=== PATIENT | female | born 1995 ===

== ENCOUNTER 2017-09-01 08:50 | Emergency (ER) | payer MEDICAID, OTHER ==
[2017-09-01 08:52] VITALS: BMI 30.2
[2017-09-01 09:16] VITALS: BP 106/68; PULSE 76; RESP 18; TEMP 98.9; O2SAT 97
--- NOTE | 2017-09-01 09:29 | ED PDOC ---
Arrival/HPI - General Chief Complaint: ENT Problem Time Seen by Provider: 09/01/17 09:20 Historian: Patient - History of Present Illness Narrative History of Present Illness (Text): 09/01/17 09:26 This 22 yo female who denies pmh, presents to this ED c/o sore throat, earache x 2 days. Patient stated patient has been taking home remedies without significant improvement. Denies sob, cp, abdominal pain, , urinary symptoms, skin rash, dysphagia, or abnormal gait. Time/Duration: Other (see hpi) Context: Home Past Medical History - Provider Review Nursing Documentation Reviewed: Yes - Past History Past History: No Previous - Infectious Disease Hx of Infectious Diseases: None - Tetanus Immunization Tetanus Immunization: Unknown - Past Medical History Past Medical History: Non-Contributing - Pulmonary Hx Asthma: Yes - Psychiatric Hx Substance Use: No - Surgical History Hx Appendectomy: Yes - Suicidal Assessment Feels Threatened In Home Enviroment: No Family/Social History - Physician Review Nursing Documentation Reviewed: Yes Family/Social History: Other (noncontributory) Smoking Status: Never Smoked Hx Alcohol Use: Yes Hx Substance Use: No Hx Substance Use Treatment: No Allergies/Home Meds Allergies/Adverse Reactions: Allergies No Known Allergies Allergy (Verified 09/01/17 09:16) Review of Systems - Review of Systems Constitutional: Normal. absent: Fatigue, Weight Change, Fevers, Night Sweats Eyes: Normal. absent: Photophobia, Eye Pain ENT: Sore Throat Respiratory: Normal. absent: SOB, Cough Cardiovascular: Normal. absent: Chest Pain Gastrointestinal: Normal. absent: Abdominal Pain, Nausea, Vomiting Genitourinary Female: Normal. absent: Dysuria, Frequency, Hematuria, Vaginal Bleeding, Vaginal Discharge Musculoskeletal: Normal. absent: Neck Pain Skin: Normal. absent: Rash Neurological: Normal. absent: Headache, Dizziness, Focal Weakness, Gait Changes , Speech Changes, Facial Droop Endocrine: Normal Hemo/Lymphatic: Normal Psychiatric: Normal Physical Exam Vital Signs Temp Pulse Resp BP Pulse Ox 09/01/17 09:14 98.9 F 76 18 106/68 97 Temperature: Afebrile Blood Pressure: Normal Pulse: Regular Respiratory Rate: Normal Appearance: Positive for: Well-Appearing, Non-Toxic, Comfortable Pain Distress: None Mental Status: Positive for: Alert and Oriented X 3 - Systems Exam Head: Present: Atraumatic, Normocephalic Pupils: Present: PERRL Extroacular Muscles: Present: EOMI Conjunctiva: Present: Normal Ears: Present: Normal, NORMAL TM, Normal Canal. No: Erythema, TM Bulging, Fluid Mouth: Present: Moist Mucous Membranes Pharnyx: Present: ERYTHEMA, TONSILS ENLARGED. No: Peritonsilar Swelling, Uvular Deviation, Muffled/Hoarse Voice, [place]ider Neck: Present: Normal Range of Motion, Lymphadenopathy, Trachea Midline. No: Meningeal Signs, MIDLINE TENDERNESS, Paraspinal Tenderness Respiratory/Chest: Present: Clear to Auscultation, Good Air Exchange. No: Respiratory Distress, Accessory Muscle Use, Wheezes, Retracting, Rhonchi Cardiovascular: Present: Regular Rate and Rhythm, Normal S1, S2. No: Murmurs Upper Extremity: Present: Normal Inspection, Normal ROM Lower Extremity: Present: Normal Inspection, Normal ROM Neurological: Present: GCS=15, CN II-XII Intact, Speech Normal Skin: Present: Warm, Dry, Normal Color. No: Rashes Psychiatric: Present: Alert, Oriented x 3, Normal Insight, Normal Concentration Medical Decision Making ED Course and Treatment: 09/01/17 09:30 Re-evaluation. Patient feels better. Discussed results and plan with patient who expresses understanding. All questions answered and there is agreement with the plan to discharge home with instructions. Patient stable for discharge. Return if symptoms persist or worsen. Patient requested to have Prednisone for her enlarge tonsils, and sore throat. I reviewed risk including AVN, glaucoma, osteroporosis, DM. Patient was recommended to stop Prednisone at any time, and to change toothbrush after 4 days with ABX. Re-evaluation Time: 09:30 Reassessment Condition: Re-examined, Improved - Medication Orders Current Medication Orders: Amoxicillin (Amoxil 500 Mg Cap) 500 mg PO STAT STA PRN Reason: Protocol Stop: 09/01/17 09:21 Prednisone (Prednisone Tab) 60 mg PO STAT ONE Stop: 09/01/17 09:26 Disposition/Present on Arrival - Present on Arrival Any Indicators Present on Arrival: No History of DVT/PE: No History of Uncontrolled Diabetes: No Urinary Catheter: No History of Decub. Ulcer: No History Surgical Site Infection Following: None - Disposition Have Diagnosis and Disposition been Completed?: Yes Diagnosis: Pharyngitis Disposition: HOME/ ROUTINE Disposition Time: 09:33 Patient Plan: Discharge Patient Problems: Current Active Problems Problem Status Onset Pharyngitis Acute Condition: GOOD Discharge Instructions (ExitCare): Pharyngitis (ED) Additional Instructions: Call private doctor for follow up visit in 1-2 days. Take medication as instructed. Change toothbrush after 4 days with antibiotic. You can stop Prednisone at any time. Return to emergency if symptoms worsen. Prescriptions: Amoxicillin [Amoxil 500 mg Cap] 500 mg PO TID #30 cap Prednisone [Deltasone] 40 mg PO DAILY #8 tablet Referrals: Olamide Meek, [Primary Care Provider] - Follow up with primary [facility] [Outside] - Follow up with primary [facility] [Outside] - Follow up with primary
== END 2017-09-01 09:42 | disposition home or self-care (01) ==
LOC: ED 08:50
DX: J02.9 Acute pharyngitis, unspecified (principal)

== ENCOUNTER 2017-10-18 12:21 | Emergency (ER) | payer MEDICAID ==
[2017-10-18 12:49] VITALS: BMI 28.3
[2017-10-18 12:53] VITALS: TEMP 98.4
--- NOTE | 2017-10-18 12:56 | ED PDOC ---
Arrival/HPI - General Chief Complaint: Female Genitourinary Time Seen by Provider: 10/18/17 12:53 Historian: Patient - History of Present Illness Narrative History of Present Illness (Text): 10/18/17 12:54 22 y/o female, no significant pmh, nkda, c/o burning urinary sensation with frequency/urgency started last night. Pt. has no pelvic or flank pain, no abdominal pain, eating and drinking well, no night sweat, no dizziness, no rash , no hematuria, no other medical or psychological complaints. Past Medical History - Provider Review Nursing Documentation Reviewed: Yes - Past History Past History: No Previous - Infectious Disease Hx of Infectious Diseases: None - Tetanus Immunization Tetanus Immunization: Unknown - Past Medical History Past Medical History: Non-Contributing - Pulmonary Hx Asthma: Yes - Genitourinary/Gynecological Hx Urinary Tract Infection: Yes (recurrent) - Psychiatric Hx Depression: No Hx Emotional Abuse: No Hx Physical Abuse: No Hx Substance Use: No - Surgical History Hx Appendectomy: Yes - Anesthesia Hx Anesthesia: Yes Hx Anesthesia Reactions: No Hx Malignant Hyperthermia: No - Suicidal Assessment Feels Threatened In Home Enviroment: No Family/Social History - Physician Review Nursing Documentation Reviewed: Yes Family/Social History: Unknown Family HX Smoking Status: Never Smoked Hx Alcohol Use: Yes Frequency of alcohol use: Socially Hx Substance Use: No Hx Substance Use Treatment: No Allergies/Home Meds Allergies/Adverse Reactions: Allergies No Known Allergies Allergy (Verified 09/01/17 09:16) Review of Systems - Review of Systems Constitutional: absent: Fatigue, Fevers Eyes: absent: Vision Changes ENT: absent: Hearing Changes Respiratory: absent: SOB, Cough Cardiovascular: absent: Chest Pain Gastrointestinal: absent: Abdominal Pain, Nausea, Vomiting Genitourinary Female: Dysuria, Frequency. absent: Hematuria, Urine Output Changes, Vaginal Bleeding, Vaginal Discharge Skin: absent: Rash, Pruritis Neurological: absent: Headache Psychiatric: absent: Anxiety, Depression Physical Exam Vital Signs Reviewed: Yes Vital Signs Temp Pulse Resp BP Pulse Ox 10/18/17 12:53 98.4 F 73 18 109/73 99 Temperature: Afebrile Blood Pressure: Normal Pulse: Regular Respiratory Rate: Normal Appearance: Positive for: Well-Appearing, Non-Toxic, Comfortable Pain Distress: Mild Mental Status: Positive for: Alert and Oriented X 3 - Systems Exam Head: Present: Atraumatic, Normocephalic Pupils: Present: PERRL Extroacular Muscles: Present: EOMI Conjunctiva: Present: Normal Mouth: Present: Moist Mucous Membranes Neck: Present: Normal Range of Motion Respiratory/Chest: Present: Clear to Auscultation, Good Air Exchange. No: Respiratory Distress, Accessory Muscle Use Cardiovascular: Present: Regular Rate and Rhythm, Normal S1, S2. No: Murmurs Abdomen: Present: Normal Bowel Sounds. No: Tenderness, Distention, Peritoneal Signs Back: Present: Normal Inspection. No: CVA Tenderness Upper Extremity: Present: Normal Inspection. No: Cyanosis, Edema Lower Extremity: Present: Normal Inspection. No: Edema Neurological: Present: GCS=15, Speech Normal, Motor Func Grossly Intact, Gait Normal, Memory Normal Skin: Present: Warm, Dry, Normal Color. No: Rashes Psychiatric: Present: Alert, Oriented x 3, Normal Insight, Normal Concentration Medical Decision Making ED Course and Treatment: 10/18/17 12:55 -urine hcg -UA -observe and reassess 10/18/17 14:11 -urine hcg is negative -UA show +UTI, macrobid and pyridium ordered. -Discharge home with macrobid, pyridium, stay hydrated, bed rest, follow up with your own pmd within 2 days, return to the ER for any new or worsening signs or symptoms. - Lab Interpretations Lab Results: Lab Results 10/18/17 13:45: Urine Color Yellow, Urine Appearance Cloudy, Urine pH 6.0, Ur Specific [place] 1.020, Urine Protein 30 H, Urine Glucose (UA) Negative, Urine Ketones Negative, Urine Blood Large H, Urine Nitrate Positive H, Urine Bilirubin Negative, Urine Urobilinogen 0.2, Ur Leukocyte Esterase Large H, Urine RBC Pending, Urine WBC Pending I have reviewed the lab results: Yes Interpretation: All labs normal - PA / SPECIMEN PREPARATION ASSISTANT / Resident Statement MD/DO has reviewed & agrees with the documentation as recorded. Disposition/Present on Arrival - Present on Arrival Any Indicators Present on Arrival: No History of DVT/PE: No History of Uncontrolled Diabetes: No Urinary Catheter: No History of Decub. Ulcer: No History Surgical Site Infection Following: None - Disposition Have Diagnosis and Disposition been Completed?: Yes Diagnosis: UTI (urinary tract infection) Disposition: HOME/ ROUTINE Disposition Time: 12:56 Patient Plan: Discharge Condition: GOOD Additional Instructions: -Discharge home with macrobid, pyridium, stay hydrated, bed rest, follow up with your own pmd within 2 days, return to the ER for any new or worsening signs or symptoms. Prescriptions: Nitrofurantoin Macrocrystals [Macrobid] 100 mg PO BID #14 cap Phenazopyridine [Pyridium] 200 mg PO TID #6 tab Referrals: [facility] [place] - Follow up with primary Forms: WORK NOTE
[2017-10-18 14:05] LABS: URINE BILIRUBIN NEGATIVE (NEGATIVE); URINE BLOOD LARGE (NEGATIVE); URINE GLUCOSE (UA) NEGATIVE (NEGATIVE); URINE LEUKOCYTE ESTERASE LARGE Leu/uL (NEGATIVE); URINE PROTEIN 30 mg/dL (<30 mg/dL); URINE UROBILINOGEN 0.2 E.U./dL (<1 E.U./dL)
[2017-10-18 14:07] LABS: URINE APPEARANCE CLOUDY (CLEAR); URINE COLOR YELLOW (YELLOW)
[2017-10-18 14:16] LABS: URINE BACTERIA MOD (NEG); URINE RBC 15 - 20 /hpf (0-2); URINE WBC TNTC /hpf (0-6)
[2017-10-18 14:17] LABS: URINE AMORPHOUS SEDIMENT SMALL
[2017-10-18 15:14] VITALS: BP 111/76; PULSE 70; RESP 17; O2SAT 100
== END 2017-10-18 14:30 | disposition home or self-care (01) ==
LOC: ED 12:21
DX: N39.0 Urinary tract infection, site not specified (principal)

== ENCOUNTER 2018-01-16 21:01 | Emergency (ER) | payer MEDICAID ==
[2018-01-16 21:02] VITALS: BMI 28.3
[2018-01-16 21:11] VITALS: TEMP 99.2
[2018-01-16 21:58] LABS: URINE BILIRUBIN NEGATIVE (NEGATIVE); URINE BLOOD NEGATIVE (NEGATIVE); URINE GLUCOSE (UA) NEGATIVE (NEGATIVE); URINE LEUKOCYTE ESTERASE TRACE Leu/uL (NEGATIVE); URINE PROTEIN NEGATIVE mg/dL (<30 mg/dL); URINE UROBILINOGEN 0.2 E.U./dL (<1 E.U./dL)
[2018-01-16 21:59] LABS: URINE APPEARANCE CLEAR (CLEAR); URINE COLOR YELLOW (YELLOW)
[2018-01-16 22:00] LABS: HCG,QUALITATIVE URINE NEGATIVE (NEGATIVE)
[2018-01-16 22:06] LABS: URINE BACTERIA FEW (NEG); URINE RBC 0 - 2 /hpf (0-2)
--- NOTE | 2018-01-16 22:10 | ED PDOC ---
Arrival/HPI - General Chief Complaint: Female Genitourinary Time Seen by Provider: 01/16/18 21:20 Historian: Patient - History of Present Illness Narrative History of Present Illness (Text): 01/16/18 22:07 Patient is a 22 year old female who presents to the Emergency department complaining of vaginal itching with minimal discharge that started 3 days ago. Patient reports that she has tried putting yogurt in her vagina. She states that she is monogymous and has unprotected sex. She denies any vaginal bleeding , abdominal pain, fever, nausea, vomiting, or any other complaints at this time. Time/Duration: < week (3 days ago) Symptom Onset: Sudden Symptom Course: Unchanged Context: Home Past Medical History - Provider Review Nursing Documentation Reviewed: Yes - Past History Past History: No Previous - Infectious Disease Hx of Infectious Diseases: None - Tetanus Immunization Tetanus Immunization: Unknown - Past Medical History Past Medical History: Non-Contributing - Cardiac Hx Cardiac Disorders: No - Pulmonary Hx Respiratory Disorders: Yes Hx Asthma: Yes - Neurological Hx Neurological Disorder: No - HEENT Hx HEENT Disorder: No - Renal Hx Renal Disorder: No - Endocrine/Metabolic Hx Endocrine Disorders: No - Hematological/Oncological Hx Blood Disorders: No - Integumentary Hx Dermatological Disorder: No - Musculoskeletal/Rheumatological Hx Musculoskeletal Disorders: No - Gastrointestinal Hx Gastrointestinal Disorders: Yes Other/Comment: AP - Genitourinary/Gynecological Hx Genitourinary Disorders: Yes Hx Urinary Tract Infection: Yes (recurrent) - Psychiatric Hx Psychophysiologic Disorder: No Hx Depression: No Hx Emotional Abuse: No Hx Physical Abuse: No Hx Substance Use: No - Surgical History Hx Appendectomy: Yes - Anesthesia Hx Anesthesia: Yes Hx Anesthesia Reactions: No Hx Malignant Hyperthermia: No - Suicidal Assessment Feels Threatened In Home Enviroment: No Family/Social History - Physician Review Nursing Documentation Reviewed: Yes Family/Social History: Unknown Family HX Smoking Status: Never Smoked Hx Alcohol Use: Yes Hx Substance Use: No Hx Substance Use Treatment: No Allergies/Home Meds Allergies/Adverse Reactions: Allergies No Known Allergies Allergy (Verified 01/16/18 21:06) Home Medications: Home Meds Medication Instructions Recorded Confirmed No Known Home Med 01/16/18 01/16/18 Review of Systems - Physician Review All systems were reviewed & negative as marked: Yes - Review of Systems Constitutional: absent: Fevers Gastrointestinal: absent: Abdominal Pain, Nausea, Vomiting Genitourinary Female: Vaginal Discharge, Other (vaginal itching). absent: Vaginal Bleeding Physical Exam Vital Signs Reviewed: Yes Vital Signs Temp Pulse Resp BP Pulse Ox 01/16/18 23:42 85 18 115/72 100 01/16/18 21:07 99.2 F 77 16 100/64 99 Temperature: Afebrile Blood Pressure: Normal Pulse: Regular Respiratory Rate: Normal Appearance: Positive for: Well-Appearing Mental Status: Positive for: Alert and Oriented X 3 - Systems Exam Head: Present: Atraumatic, Normocephalic Pupils: Present: PERRL Extroacular Muscles: Present: EOMI Conjunctiva: Present: Normal Mouth: Present: Moist Mucous Membranes Neck: Present: Normal Range of Motion Respiratory/Chest: Present: Clear to Auscultation, Good Air Exchange. No: Respiratory Distress, Accessory Muscle Use Cardiovascular: Present: Regular Rate and Rhythm, Normal S1, S2. No: Murmurs Abdomen: No: Tenderness, Distention, Peritoneal Signs Genitourinary/Pelvic Exam: Present: Vaginal Discharge (White clumpy discharge on specula exam), Other ((-) suprapubic tenderness, (+)mild erythema on external vaginal exam. Female nurse present as band scroll saw operator.). No: Adenexal Tenderness, Cervical Motion Tendernes Back: Present: Normal Inspection Upper Extremity: Present: Normal Inspection. No: Cyanosis, Edema Lower Extremity: Present: Normal Inspection. No: Edema Neurological: Present: GCS=15, Speech Normal, Motor Func Grossly Intact, Normal Sensory Function Skin: Present: Warm, Dry, Normal Color. No: Rashes Psychiatric: Present: Alert, Oriented x 3, Normal Insight, Normal Concentration Medical Decision Making ED Course and Treatment: 01/16/18 22:13 Impression: Patient is a 22 year old female who presents to the Emergency department complaining of vaginal itching with discharge that started 3 days ago. Differential Diagnosis included but are not limited to: Yeast infection vs. STD vs. Possible labia abscess Plan: --BV/vaginitis and Chlamydia test --Diflucan --Urine culture --Pelvic exam -- Reassess and disposition Prior Visits: Notes and results from previous visits were reviewed. Progress Notes: 01/16/18 22:13 Reevaluation: On reevaluation the patient is in no acute distress. I have discussed the plan with the patient, who expresses understanding. Patient given the opportunity to ask question, all questions were answered and there is agreement with the plan to discharge the patient home. Patient is stable for discharge. Patient was instructed to follow up with physician/clinic in 1-2 days or return if symptoms persist/worsen or new concerning symptoms arise. - Lab Interpretations Lab Results: Lab Results 01/16/18 21:47: Urine Color Yellow, Urine Appearance Clear, Urine pH 7.0, Ur Specific [place] 1.020, Urine Protein Negative, Urine Glucose (UA) Negative, Urine Ketones Negative, Urine Blood Negative, Urine Nitrate Negative, Urine Bilirubin Negative, Urine Urobilinogen 0.2, Ur Leukocyte Esterase Trace H, Urine RBC 0 - 2, Urine WBC 2 - 5, Ur Epithelial Cells 3 - 4, Urine Bacteria Few , Urine HCG, Qual Negative - Medication Orders Current Medication Orders: Discontinued Medications Fluconazole (Diflucan) 150 mg PO STAT STA PRN Reason: Protocol Stop: 01/16/18 22:42 Last Admin: 01/16/18 23:04 Dose: 150 mg - Scribe Statement The provider has reviewed the documentation as recorded by the Lacho Wolf Provider Scribe Attestation: All medical record entries made by the Lacho were at my direction and personally dictated by me. I have reviewed the chart and agree that the record accurately reflects my personal performance of the history, physical exam, medical decision making, and the department course for this patient. I have also personally directed, reviewed, and agree with the discharge instructions and disposition. Disposition/Present on Arrival - Present on Arrival Any Indicators Present on Arrival: No History of DVT/PE: No History of Uncontrolled Diabetes: No Urinary Catheter: No History of Decub. Ulcer: No History Surgical Site Infection Following: None - Disposition Have Diagnosis and Disposition been Completed?: Yes Diagnosis: Candidal vaginitis Disposition: HOME/ ROUTINE Disposition Time: 22:23 Patient Plan: Discharge Condition: IMPROVED Discharge Instructions (ExitCare): Vulvovaginal Yeast Infection Forms: [facility] ([place])
[2018-01-17 00:31] VITALS: BP 115/72; PULSE 85; RESP 18; O2SAT 100
== END 2018-01-16 23:42 | disposition home or self-care (01) ==
LOC: ED 21:01
DX: B37.3 Candidiasis of vulva and vagina (principal)

== ENCOUNTER 2018-02-20 17:08 | Emergency (ER) | payer SELFPAY ==
[2018-02-20 17:43] VITALS: BMI 30.2
[2018-02-20 17:48] VITALS: RESP 18; O2SAT 96
--- NOTE | 2018-02-20 18:51 | ED PDOC ---
Arrival/HPI - General Historian: Patient - History of Present Illness Time/Duration: < month Symptom Onset: Gradual Symptom Course: Intermittent Quality: Other (sharp) Activities at Onset: Rest, Sleeping <Juan Mireles - Last Filed: 02/20/18 21:41> <Navi Das - Last Filed: 02/20/18 21:48> - General Chief Complaint: Abdominal Pain Time Seen by Provider: 02/20/18 17:28 - History of Present Illness Narrative History of Present Illness (Text): 02/20/18 18:48 PGY-[address] Das Patient is a 22 year old who presents to the ED with 3 weeks of intermittent LLQ pain. Pain is described as a sharp pain in LLQ that radiates to the back on the left. Patient complains of foul smelling urine that is similar to UTIs in the past, but denies any fevers, chils, dysuria, urinary urgency or frequency, or change in urine color. Pt last had her period 3 weeks ago and has taken two home pregancy tests, both of which were negative. She reports one episode of minimal watery discharge a few days ago, denies any thick or purulent discharge. Patient did have a last year which ended in . She is sexually active and does not use protection because she is "allergic to latex", denies dyspareunia. Surgical history is positive for appendectomy ate age 16. (Juan Mireles) Past Medical History - Provider Review Nursing Documentation Reviewed: Yes - Past History Past History: No Previous - Infectious Disease Hx of Infectious Diseases: None - Tetanus Immunization Tetanus Immunization: Unknown - Past Medical History Past Medical History: Non-Contributing - Cardiac Hx Cardiac Disorders: No - Pulmonary Hx Respiratory Disorders: Yes Hx Asthma: Yes - Neurological Hx Neurological Disorder: No - HEENT Hx HEENT Disorder: No - Renal Hx Renal Disorder: No - Endocrine/Metabolic Hx Endocrine Disorders: No - Hematological/Oncological Hx Blood Disorders: No - Integumentary Hx Dermatological Disorder: No - Musculoskeletal/Rheumatological Hx Musculoskeletal Disorders: No - Gastrointestinal Hx Gastrointestinal Disorders: Yes Other/Comment: AP - Genitourinary/Gynecological Hx Genitourinary Disorders: Yes Hx Urinary Tract Infection: Yes (recurrent) - Psychiatric Hx Psychophysiologic Disorder: No Hx Depression: No Hx Emotional Abuse: No Hx Physical Abuse: No Hx Substance Use: No - Surgical History Hx Appendectomy: Yes - Anesthesia Hx Anesthesia: Yes Hx Anesthesia Reactions: No Hx Malignant Hyperthermia: No - Suicidal Assessment Feels Threatened In Home Enviroment: No <Juan Mireles - Last Filed: 02/20/18 21:41> Family/Social History - Physician Review Nursing Documentation Reviewed: Yes Family/Social History: No Known Family HX Smoking Status: Never Smoked Hx Alcohol Use: Yes Hx Substance Use: No Hx Substance Use Treatment: No <Juan Mireles - Last Filed: 02/20/18 21:41> Allergies/Home Meds <Juan Mireles - Last Filed: 02/20/18 21:41> <ZoraidaNavi pedro Michael - Last Filed: 02/20/18 21:48> Allergies/Adverse Reactions: Allergies No Known Allergies Allergy (Verified 01/16/18 21:06) Review of Systems - Physician Review All systems were reviewed & negative as marked: Yes - Review of Systems Constitutional: absent: Fatigue, Fevers Eyes: absent: Vision Changes, Photophobia ENT: absent: Sore Throat, Rhinorrhea Respiratory: absent: SOB, Cough Cardiovascular: absent: Chest Pain, Palpitations Gastrointestinal: Abdominal Pain, Nausea, Appetite Changes (Loss of appetite), Food Intolerance. absent: Vomiting Genitourinary Female: Vaginal Discharge (+One episode minimal watery discharge) , Other (+Foul/metallic smelling urine). absent: Dysuria, Frequency, Vaginal Bleeding Skin: Normal. absent: Rash, Skin Lesions Neurological: Headache. absent: Dizziness, Focal Weakness Endocrine: absent: Diaphoresis <Juan Mireles - Last Filed: 02/20/18 21:41> Physical Exam Vital Signs Reviewed: Yes Temperature: Afebrile Blood Pressure: Normal Pulse: Regular Respiratory Rate: Normal Appearance: Positive for: Well-Appearing, Non-Toxic, Comfortable Pain Distress: Mild Mental Status: Positive for: Alert and Oriented X 3. No: Confused, Agitated - Systems Exam Head: Present: Atraumatic, Normocephalic Pupils: Present: PERRL Extroacular Muscles: Present: EOMI Conjunctiva: Present: Normal Mouth: Present: Moist Mucous Membranes Respiratory/Chest: Present: Clear to Auscultation, Good Air Exchange. No: Respiratory Distress, Accessory Muscle Use, Wheezes, Rhonchi Cardiovascular: Present: Regular Rate and Rhythm, Normal S1, S2. No: Murmurs Abdomen: Present: Tenderness (+LLQ tenderness tender to palpation with radiation to L back), Normal Bowel Sounds, Rebound. No: Distention, Guarding Genitourinary/Pelvic Exam: Present: Normal External Genitalia, Vaginal Discharge (Small amount of thin clear/white discharge), Adenexal Tenderness (+L adexnal tenderness on bimanual exam), Cervical os Closed. No: Vaginal Bleeding , Vaginal Lesions, Cervical Motion Tendernes Back: No: CVA Tenderness, Midline Tenderness, Paraspinal Tenderness Upper Extremity: Present: Normal Inspection. No: Cyanosis, Edema Lower Extremity: Present: NORMAL PULSES. No: Edema Neurological: Present: GCS=15, CN II-XII Intact, Speech Normal, Motor Func Grossly Intact, Normal Sensory Function Skin: Present: Warm, Dry, Normal Color. No: Rashes Psychiatric: Present: Alert, Oriented x 3, Normal Insight, Normal Concentration <Juan Mireles - Last Filed: 02/20/18 21:41> <Navi Das - Last Filed: 02/20/18 21:48> - Physical Exam Narrative Physical Exam (Text): 02/20/18 19:27 Pelvic and bimanual exams performed by Dr. Das in the presence of female [place] man Heena Sharma 02/20/18 19:44 (Juan Mireles) Vital Signs Temp Pulse Resp BP Pulse Ox 02/20/18 21:35 98.6 F 60 18 107/73 96 02/20/18 17:43 98.7 F 72 18 107/63 96 Medical Decision Making <Juan Mireles - Last Filed: 02/20/18 21:41> <Navi Das - Last Filed: 02/20/18 21:48> ED Course and Treatment: 02/20/18 19:20 LLQ Tenderness - DDx: IUP, ectopic , spontaneous threatened , endometriosis/chocolate cyst, ovarian cyst, ovarian torsion, UTI, viral gastritis, IBS Plan: Labs: CBC w/ dif, CMP, Urine GC RNA, UA Imaging: Transvaginal US Meds: Toradol 15 mg IM for abdominal pain 02/20/18 21:10 (Juan Mireles) 02/20/18 19:58 Bernardino Irwin is a 22 year old female, who presents to the emergency department with a complaint of 3 week duration, sharp left lower quadrant abdominal pain radiating to her back. In agreement with resident note, which includes further HPI details. Patient was seen and evaluated with resident, came up with plan and treatment together. Pelvic and bimanual exams performed by myself in the presence of female [place] man Heena Sharma Genitourinary/Pelvic Exam: Present: Normal External Genitalia, Vaginal Discharge (Small amount of thin clear/white discharge), Adenexal Tenderness (+L adnexal tenderness on bimanual exam), Cervical os Closed. No: Vaginal Bleeding , Vaginal Lesions, Cervical Motion Tenderness US Pelvis Complete Transabdominal US Pelvis, Transgavinal US Duplex Arterial/ Venous of the Pelvis, Complete Dictated and Authenticated by: Kev Turner MD 02/26/2018 8:39 Eastern Time ([place] & [place]) IMPRESSION: No acute findings. 02/20/18 21:47 Patient feels better. Abdomen/pelvis soft and not tender. Patient will f/u with obgyn in 1-2 days. TV sono reviewed with patient. UA negative. Patient will f/u with PMD as well and return to the ED if symptoms worsen or any other concern. (Navi Das) - Lab Interpretations Lab Results: 02/20/18 18:50 02/20/18 18:50 Lab Results 02/20/18 18:50: Sodium 139, Potassium 3.8, Chloride 103, Carbon Dioxide 27, Anion Gap 14, BUN 13, Creatinine 0.7, Est GFR ( Amer) > 60, Est GFR (Non- Af Amer) > 60, Random Glucose 96, Calcium 9.2, Total Bilirubin 0.4, AST 24, ALT 36, Alkaline Phosphatase 66, Total Protein 7.2, Albumin 4.1, Globulin 3.1, Albumin/Globulin Ratio 1.3 02/20/18 18:50: WBC 8.3, RBC 4.52, Hgb 13.4, Hct 39.6, MCV 87.6, MCH 29.6, MCHC 33.8, RDW 12.6, Plt Count 325, MPV 8.3, Gran % 52.4, Lymph % (Auto) 34.1, [place] % (Auto) 9.9 H, Eos % (Auto) 2.5, Baso % (Auto) 1.1, Gran # 4.36, Lymph # (Auto ) 2.8, [place] # (Auto) 0.8 H, Eos # (Auto) 0.2, Baso # (Auto) 0.09 02/20/18 18:50: Urine Color Yellow, Urine Appearance Clear, Urine pH 6.0, Ur Specific [place] 1.020, Urine Protein Negative, Urine Glucose (UA) Negative, Urine Ketones Negative, Urine Blood Negative, Urine Nitrate Negative, Urine Bilirubin Negative, Urine Urobilinogen 0.2, Ur Leukocyte Esterase Negative - RAD Interpretation Radiology Orders: 02/20/18 18:33 TRANSVAGINAL [US] Stat - Medication Orders Current Medication Orders: Discontinued Medications Ketorolac Tromethamine (Toradol) 15 mg IM STAT STA Stop: 02/20/18 19:34 Last Admin: 02/20/18 19:55 Dose: Not Given Non-Admin Reason: Patient Refused Disposition/Present on Arrival - Present on Arrival Any Indicators Present on Arrival: No History of DVT/PE: No History of Uncontrolled Diabetes: No Urinary Catheter: No History of Decub. Ulcer: No History Surgical Site Infection Following: None - Disposition Have Diagnosis and Disposition been Completed?: Yes Disposition Time: 21:42 <Juan Mireles - Last Filed: 02/20/18 21:41> - Disposition Patient Plan: Discharge <Navi Das - Last Filed: 02/20/18 21:48> - Disposition Diagnosis: Abdominal pain, Vaginal candidiasis Disposition: HOME/ ROUTINE Patient Problems: Current Active Problems Problem Status Onset Abdominal pain Acute Vaginal candidiasis Acute Condition: IMPROVED Additional Instructions: BERNARDINO IRWIN, thank you for letting us take care of you today. Your provider was Navi Das DO and you were treated for Pelvic Pain, Yeast Infection The emergency medical care you received today was directed at your acute symptoms. If you were prescribed any medication, please fill it and take as directed. It may take several days for your symptoms to resolve. Return to the Emergency Department if your symptoms worsen, do not improve, or if you have any other problems. Please contact your doctor or call one of the physicians/clinics you have been referred to that are listed on the Patient Visit Information form that is included in your discharge packet. Bring any paperwork you were given at discharge with you along with any medications you are taking to your follow up visit. Our treatment cannot replace ongoing medical care by a primary care provider outside of the emergency department. Thank you for allowing the [facility] team to be part of your care today. If you had an X-Ray or CT scan: A Radiologist will review the ED reading if any change in treatment is needed we will contact you. If you had a blood, urine, or wound culture: It will take several days for the results, if any change in treatment is needed we will contact you. If you had an STI test: It will take 48 hours for the results. Please call after 1 week if you have not heard back. Prescriptions: Clotrimazole 1% Vaginal [Lotrimin 1% Vaginal] 1 applic VG QPM #1 tube Referrals: Nusrat Ross MD [Primary Care Provider] - Follow up with primary Forms: [employer] ([place]), WORK NOTE
[2018-02-20 19:09] LABS: URINE BILIRUBIN NEGATIVE (NEGATIVE); URINE BLOOD NEGATIVE (NEGATIVE); URINE GLUCOSE (UA) NEGATIVE (NEGATIVE); URINE PROTEIN NEGATIVE mg/dL (<30 mg/dL); URINE UROBILINOGEN 0.2 E.U./dL (<1 E.U./dL)
[2018-02-20 19:10] LABS: URINE APPEARANCE CLEAR (CLEAR); URINE COLOR YELLOW (YELLOW)
[2018-02-20 19:11] LABS: BASO # 0.09 K/mm3 (0.0-2.0); BASO % 1.1 % (0.0-3.0); EOS # 0.2 (0.0-0.7); EOS % 2.5 % (1.5-5.0); GRAN # 4.36 (1.4-6.5); GRAN % 52.4 % (50.0-68.0); HEMOGLOBIN 13.4 g/dL (12.0-16.0); LYMPH # 2.8 (1.2-3.4); LYMPH % 34.1 % (22.0-35.0); MEAN CELL VOLUME 87.6 fl (80.0-105.0); MEAN CORPUSCULAR HEMOGLOBIN 29.6 pg (25.0-35.0); MEAN CORPUSCULAR HGB CONC 33.8 g/dl (31.0-37.0); MEAN PLATELET VOLUME 8.3 fl (7.0-11.0); MONO # 0.8 (0.1-0.6); MONO % 9.9 % (1.0-6.0); RBC 4.52 10^6/uL (3.5-6.1); RED CELL DISTRIBUTION WIDTH 12.6 % (11.5-14.5); URINE LEUKOCYTE ESTERASE NEGATIVE Leu/uL (NEGATIVE); WHITE BLOOD COUNT 8.3 10^3/ul (4.5-11.0)
[2018-02-20 19:19] LABS: ALB/GLOB RATIO 1.3 (1.1-1.8); ALBUMIN 4.1 g/dL (3.0-4.8); ALT/SGPT 36 U/L (7-56); AST/SGOT 24 U/L (14-36); BLOOD UREA NITROGEN 13 mg/dL (7-21); CALCIUM 9.2 mg/dL (8.4-10.5); GFR AFRICAN-AMERICAN > 60; GFR NON-AFRICAN AMERICAN > 60
[2018-02-20 21:36] VITALS: BP 107/73; PULSE 60; TEMP 98.6
--- NOTE | 2018-02-21 09:52 | US ---
Date of service: 02/20/2018 PROCEDURE: HISTORY: LLQ Pain COMPARISON: TECHNIQUE: FINDINGS: The uterus is normal in size measuring millimeters. The ovaries have a normal sonographic appearance of evidence of mass or cyst. There is no free fluid the pelvis. IMPRESSION: Normal pelvic ultrasound.
== END 2018-02-20 21:45 | disposition home or self-care (01) ==
LOC: ED 17:08
DX: R10.32 Left lower quadrant pain (principal); B37.3 Candidiasis of vulva and vagina

== ENCOUNTER 2018-08-12 20:36 | Emergency (ER) | payer MEDICAID ==
[2018-08-12 21:25] VITALS: BP 130/80; PULSE 65; RESP 18; TEMP 97.9; O2SAT 98; BMI 28.7
--- NOTE | 2018-08-12 21:38 | ED PDOC ---
Arrival/HPI - General Chief Complaint: Upper Extremity Problem/Injury Time Seen by Provider: 08/12/18 21:20 Historian: Patient - History of Present Illness Narrative History of Present Illness (Text): 08/12/18 21:33 23 year old female, with no significant past medical history, presents to the ED for evaluation of right shoulder pain since 9 days. Patient states her gym program trainer started her on higher weights last Saturday leading patient to sustain discomfort to her right shoulder. Patient reports pain with extension of her right shoulder and pain with movement of her head to the right. Patient denies taking any pain medication at home. Patient denies any other associated somatic complaints. Patient denies any changes in vision or taste. patient denies any fever, chills, nausea, vomiting, numbness/tingling or any other complaints. Time/Duration: > week Symptom Onset: Gradual Symptom Course: Unchanged Activities at Onset: Light Context: Other (Gym) Past Medical History - Provider Review Nursing Documentation Reviewed: Yes - Past History Past History: No Previous - Infectious Disease Hx of Infectious Diseases: None - Tetanus Immunization Tetanus Immunization: Unknown - Past Medical History Past Medical History: Non-Contributing - Cardiac Hx Cardiac Disorders: No - Pulmonary Hx Respiratory Disorders: Yes Hx Asthma: Yes - Neurological Hx Neurological Disorder: No - HEENT Hx HEENT Disorder: No - Renal Hx Renal Disorder: No - Endocrine/Metabolic Hx Endocrine Disorders: No - Hematological/Oncological Hx Blood Disorders: No - Integumentary Hx Dermatological Disorder: No - Musculoskeletal/Rheumatological Hx Musculoskeletal Disorders: No - Gastrointestinal Hx Gastrointestinal Disorders: Yes Other/Comment: AP - Genitourinary/Gynecological Hx Genitourinary Disorders: Yes Hx Urinary Tract Infection: Yes (recurrent) - Psychiatric Hx Psychophysiologic Disorder: No Hx Depression: No Hx Emotional Abuse: No Hx Physical Abuse: No Hx Substance Use: No - Surgical History Hx Appendectomy: Yes - Anesthesia Hx Anesthesia: Yes Hx Anesthesia Reactions: No Hx Malignant Hyperthermia: No - Suicidal Assessment Feels Threatened In Home Enviroment: No Family/Social History - Physician Review Nursing Documentation Reviewed: Yes Family/Social History: Unknown Family HX Smoking Status: Never Smoked Hx Alcohol Use: Yes Hx Substance Use: No Hx Substance Use Treatment: No Allergies/Home Meds Allergies/Adverse Reactions: Allergies No Known Allergies Allergy (Verified 08/12/18 21:15) Review of Systems - Physician Review All systems were reviewed & negative as marked: Yes - Review of Systems Eyes: absent: Vision Changes Musculoskeletal: Myalgias (Right shoulder pain) Neurological: absent: Headache Physical Exam - Physical Exam Narrative Physical Exam (Text): 08/12/18 21:39 Constitutional: No acute distress. Head: Normocephalic. Atraumatic. Eyes: PERRL. ENT: Moist mucous membranes. Neck: Supple. Cardiovascular: Regular rate. Chest: No tenderness. Respiratory: Clear to auscultation bilaterally. GI: Soft. Nontender. Nondistended. Back: No CVA tenderness. Musculoskeletal: Full range of motion of right shoulder with pain. Tenderness to right clavicle along AC joint and trapezius muscle. Radial pulses 2+. FROM of right elbow and wrist. Skin: No rash. Neurologic: Alert, no focal deficit. Vital Signs Reviewed: Yes Vital Signs Temp Pulse Resp BP Pulse Ox 08/12/18 21:15 97.9 F 65 18 130/80 98 Temperature: Afebrile Blood Pressure: Normal Pulse: Regular Respiratory Rate: Normal Appearance: Positive for: Well-Appearing, Non-Toxic, Comfortable Pain Distress: None Mental Status: Positive for: Alert and Oriented X 3 Medical Decision Making ED Course and Treatment: 08/12/18 21:41 Impression: 23 year old female presents to the ED for evaluation of right shoulder pain. Plan: -- Toradol -- X-ray of right shoulder -- Reassess and disposition Prior Visits: Notes and results from previous visits were reviewed. Progress Notes: 08/12/18 22:35 XR no fracture or dislocation. F/u Ortho, NSAIDs, sling, return to ED for worsening pain, fever, inability to range, or any other problem. - RAD Interpretation Radiology Orders: 08/12/18 21:32 SHOULDER RIGHT [RAD] Stat - Medication Orders Current Medication Orders: Ketorolac Tromethamine (Toradol) 60 mg IM STAT STA Stop: 08/12/18 21:33 - Scribe Statement The provider has reviewed the documentation as recorded by the Karenibshahla Lawler. All medical record entries made by the Scribe were at my direction and personally dictated by me. I have reviewed the chart and agree that the record accurately reflects my personal performance of the history, physical exam, medical decision making, and the department course for this patient. I have also personally directed, reviewed, and agree with the discharge instructions and disposition. Disposition/Present on Arrival - Present on Arrival Any Indicators Present on Arrival: No History of DVT/PE: No History of Uncontrolled Diabetes: No Urinary Catheter: No History of Decub. Ulcer: No History Surgical Site Infection Following: None - Disposition Have Diagnosis and Disposition been Completed?: Yes Diagnosis: Shoulder sprain Disposition: HOME/ ROUTINE Disposition Time: 22:36 Patient Plan: Discharge Condition: STABLE Discharge Instructions (ExitCare): Shoulder Sprain Prescriptions: Famotidine [Pepcid] 1 tab PO BID #14 tab Ibuprofen [Motrin] 600 mg PO Q6 #25 tab Referrals: Virgil Mtz III, MD [Medical Doctor] - Follow up with primary Forms: [employer] ([place]ian)
--- NOTE | 2018-08-13 07:57 | RAD ---
Date of service: 08/12/2018 PROCEDURE: Radiographs of the Right Shoulder HISTORY: shoulder pain COMPARISON: No prior. FINDINGS: BONES: Normal. No fracture. JOINTS: Normal. Glenohumeral and acromioclavicular joints preserved. No osteoarthritis. SOFT TISSUES: Normal. OTHER FINDINGS: None. IMPRESSION: Normal radiographs of the right shoulder.
== END 2018-08-12 22:41 | disposition home or self-care (01) ==
LOC: ED 20:36
DX: S43.401A Unspecified sprain of right shoulder joint, initial encounter (principal); X50.0XXA Overexertion from strenuous movement or load, initial encounter; Y93.B3 Activity, free weights
CPT/HCPCS: 73030; 81025; 96372; 99284; J1885